=== PATIENT | female | born 1980 | race Caucasian/White ===

== ENCOUNTER → 2018-06-10 | Outpatient (CLI) | payer BC ==
--- NOTE | 2018-06-10 10:38 | US ---
EXAMINATION TYPE: US pelvis complete transvag DATE OF EXAM: 06/10/2018 COMPARISON: NONE CLINICAL HISTORY: N93.8 Other specified abnormal uterine. Abnormal vaginal bleeding, RLQ pain TECHNIQUE: Transvaginal (TV) and Transabdominal (TA) . Transabdominal sonographic images of the pel vis were acquired. Transvaginal sonographic images were medically necessary to better assess the fol lowing anatomy: Uterus Date of LMP: 05/20/2018 EXAM MEASUREMENTS: Uterus: 7.5 x 4.1 x 3.0 cm Endometrial Stripe: 0.9 cm Right Ovary: 4.1 x 2.5 x2.3 cm Left Ovary: 2.2 x 1.6 x 1.3 cm 1. Uterus: Anteverted hypoechoic area posteriorly, ? fibroid =1.3 x 1.0 x 0.8 cm. Multiple nebothi an cysts. Largest = 0.8 cm 2. Endometrium: thickened, ? pushed anteriorly by fibroid 3. Right Ovary: with cyst = 1.1 x 1.0 x 0.8 cm 4. Left Ovary: wnl 5. Bilateral Adnexa: wnl 6. Posterior cul-de-sac: small amount of free fluid noted around uterus. IMPRESSION: Fibroid uterus
== END ==
LOC: RADUSWWP 08:06
PROVIDERS: ATTEND Family Medicine
DX: D25.9 Leiomyoma of uterus, unspecified (principal)
CPT/HCPCS: 76830; 76856

== ENCOUNTER 2018-11-28 22:10 | Emergency (ER) | payer BC ==
[2018-11-28 22:41] VITALS: BP 112/76; PULSE 93; RESP 16; TEMP 98.4
[2018-11-28] MEDS ORDERED: MUPIROCIN 2% OINT 22 GM TUBE TOPICAL STA (23:46)
[2018-11-28] MEDS ORDERED: SULFAMETH-TMP DS STARTER PACK 2 TAB BTL PO STA (23:46)
--- NOTE | 2018-11-28 23:57 | ED ---
Skin/Abscess/FB HPI - General Chief complaint: Skin/Abscess/Foreign Body Stated complaint: L Toe Infection Time Seen by Provider: 11/28/18 23:32 Source: patient, family Mode of arrival: ambulatory Limitations: no limitations - History of Present Illness Initial comments: 38-year-old female patient presents to the emergency department today for evaluation of infection to the left great toe. Patient states that she has had infection surrounding the left great toe nail for the last week. Patient states over the last 24 hours the swelling and redness has increased. Patient states that she did go to urgent care this morning and was started on Keflex and had it drained. She states that since that visit she has developed a red streak extending up her foot in her leg. States she is having some aching pain to the left inguinal region. Patient denies any fever or chills. Denies nausea or vomiting. States she has taken one dose of antibiotic so far. Denies taking anything for pain or discomfort. Patient denies any recent rash, shortness breath, chest pain, abdominal pain, nausea, vomiting, diarrhea, constipation, back pain, numbness, tingling, dizziness, weakness, hematuria, dysuria, urinary urgency, urinary frequency, headache, visual changes, or any other complaints. - Related Data Home Medications Medication Instructions Recorded Confirmed Cephalexin [Keflex] 500 mg PO Q12HR 11/28/18 11/28/18 Cholecalciferol [Vitamin D3 (25 5,000 unit PO DAILY 11/28/18 11/28/18 Mcg = 1000 Iu)] L.acidoph,Paracasei, B.lactis 1 cap PO DAILY 11/28/18 11/28/18 [Probiotic] Magnesium Citrate 125 mg PO HS 11/28/18 11/28/18 Multivitamins, Thera [Multivitamin 1 tab PO DAILY 11/28/18 11/28/18 (formulary)] Previous Rx's Medication Instructions Recorded Cephalexin [Keflex] 500 mg PO TID #30 cap 11/28/18 Sulfamethoxazole/Trimethoprim 1 each PO BID #20 tablet 11/28/18 [Bactrim DS 800-160 mg] Fluconazole [Diflucan] 150 mg PO ONCE #2 tab 11/29/18 Allergies Allergy/AdvReac Type Severity Reaction Status Date / Time No Known Allergies Allergy Verified 11/28/18 23:37 Review of Systems ROS Statement: Those systems with pertinent positive or pertinent negative responses have been documented in the HPI. ROS Other: All systems not noted in ROS Statement are negative. Past Medical History Past Medical History: No Reported History History of Any Multi-Drug Resistant Organisms: None Reported Additional Past Surgical History / Comment(s): apollo Past Psychological History: Anxiety, Depression Smoking Status: Never smoker Past Alcohol Use History: Occasional Past Drug Use History: None Reported General Exam Limitations: no limitations General appearance: alert, in no apparent distress, other (This is a well- developed, well-nourished adult female patient in no acute distress. Vital signs upon presentation are temperature 98.4F, pulse 93, respirations 16, blood pressure 112/76, pulse ox 98% on room air.) Eye exam: Present: normal appearance, PERRL, EOMI. Absent: scleral icterus, conjunctival injection, periorbital swelling ENT exam: Present: normal exam, normal oropharynx, mucous membranes moist Respiratory exam: Present: normal lung sounds bilaterally. Absent: respiratory distress, wheezes, rales, rhonchi, stridor Cardiovascular Exam: Present: regular rate, normal rhythm, normal heart sounds. Absent: systolic murmur, diastolic murmur, rubs, gallop, clicks Extremities exam: Present: full ROM, normal capillary refill, other (There is evidence for paronychia surrounding the left great toenail. There is red streaking line consistent with lymphangitis extending up the foot into mid calf. No drainage noted from the toenail. Skin is otherwise pink, warm, dry. Cap refills less than 3 seconds. Pedal and posttibial pulses are 2+ and equal bilaterally.). Absent: normal inspection, tenderness, pedal edema, joint swelling, calf tenderness Neurological exam: Present: alert, oriented X3, CN II-XII intact Psychiatric exam: Present: normal affect, normal mood Skin exam: Present: warm, dry, intact, normal color. Absent: rash Course Vital Signs 11/28/18 22:37 Temperature 98.4 F Pulse Rate 93 Respiratory 16 Rate Blood Pressure 112/76 O2 Sat by Pulse 98 Oximetry Procedures - Incision & Drainage Consent Obtained: verbal consent Indication: Paronychia Site: other (Left great toe) Size (cm): 1 I&D Cleaning Method: Betadine Scalpel Used: #11 I&D Drainage Obtained: Blood Culture Obtained?: Yes Complications: pain Patient Tolerated Procedure: well Medical Decision Making - Medical Decision Making 38-year-old female patient presents to the emergency department today for evaluation of infection surrounding the left great toenail as well as red streaking up her foot and leg. Physical examination reveals evidence for paronychia on the left great toenail. There is also evidence for lymphangitis of the left leg. She is afebrile normal vital signs. Patient did take one dose of Keflex this evening. Did attempt drainage of the paronychia which only drained blood. Culture was sent. Patient will be given prescription of bactrim to take in addition to keflex pending culture. She is instructed to take Tylenol and Motrin for pain control. Patient has had these infections from antibiotics in the past and is requesting Diflucan. She'll be discharged up with her primary care physician for recheck in 1-2 days. Return parameters were discussed in detail. She verbalizes understanding and agrees with this plan. Disposition Clinical Impression: Paronychia of great toe, left, Lymphangitis Disposition: HOME SELF-CARE Condition: Good Instructions (If sedation given, give patient instructions): Paronychia (ED), Lymphangitis (ED) Additional Instructions: Complete antibiotic prescriptions in full. Increase dosage of Keflex to 3 times daily. Take Tylenol Motrin for pain control. Follow-up with your primary care physician for recheck in 1-2 days. Return to the emergency department immediately for any new, worsening, or concerning symptoms. Prescriptions: Sulfamethoxazole/Trimethoprim [Bactrim DS 800-160 mg] 1 each PO BID #20 tablet Fluconazole [Diflucan] 150 mg PO ONCE #2 tab Cephalexin [Keflex] 500 mg PO TID #30 cap Is patient prescribed a controlled substance at d/c from ED?: No Referrals: Irina Rogers MD [Primary Care Provider] - 1-2 days Time of Disposition: 23:56
--- NOTE | 2018-11-29 00:16 | ED ---
Skin/Abscess/FB HPI - General Chief complaint: Skin/Abscess/Foreign Body Stated complaint: L Toe Infection Time Seen by Provider: 11/28/18 23:32 Source: patient, family Mode of arrival: ambulatory Limitations: no limitations - Related Data Home Medications Medication Instructions Recorded Confirmed Cephalexin [Keflex] 500 mg PO Q12HR 11/28/18 11/28/18 Cholecalciferol [Vitamin D3 (25 5,000 unit PO DAILY 11/28/18 11/28/18 Mcg = 1000 Iu)] L.acidoph,Paracasei, B.lactis 1 cap PO DAILY 11/28/18 11/28/18 [Probiotic] Magnesium Citrate 125 mg PO HS 11/28/18 11/28/18 Multivitamins, Thera [Multivitamin 1 tab PO DAILY 11/28/18 11/28/18 (formulary)] Allergies Allergy/AdvReac Type Severity Reaction Status Date / Time No Known Allergies Allergy Verified 11/28/18 23:37 Review of Systems ROS Statement: Those systems with pertinent positive or pertinent negative responses have been documented in the HPI. ROS Other: All systems not noted in ROS Statement are negative. Past Medical History Past Medical History: No Reported History History of Any Multi-Drug Resistant Organisms: None Reported Additional Past Surgical History / Comment(s): apollo Past Psychological History: Anxiety, Depression Smoking Status: Never smoker Past Alcohol Use History: Occasional Past Drug Use History: None Reported General Exam Limitations: no limitations Course Vital Signs 11/28/18 22:37 Temperature 98.4 F Pulse Rate 93 Respiratory 16 Rate Blood Pressure 112/76 O2 Sat by Pulse 98 Oximetry Disposition Referrals: Irina Rogers MD [Primary Care Provider] - 1-2 days
== END 2018-11-29 00:26 | disposition home or self-care (01) ==
LOC: EC 22:10
DX: L03.042 Acute lymphangitis of left toe (principal); Z79.899 Other long term (current) drug therapy
CPT/HCPCS: 10060; 87070; 87205; 99283

== ENCOUNTER → 2019-04-08 | Outpatient (CLI) | payer BC ==
[2019-04-08 10:26] LABS: Basophils # (A) 0.1 k/uL (0-0.2); Basophils % (A) 1 %; Eosinophils # (A) 0.4 k/uL (0-0.7); Eosinophils % (A) 7 %; HCT 42.2 % (34.0-46.0); HGB 13.9 gm/dL (11.4-16.0); Lymphocytes # (A) 2.5 k/uL (1.0-4.8); Lymphocytes % (A) 42 %; MCH 29.7 pg (25.0-35.0); MCHC 32.9 g/dL (31.0-37.0); MCV 90.2 fL (80.0-100.0); Mean Platelet Volume 7.3; Monocytes # (A) 0.4 k/uL (0-1.0); Monocytes % (A) 6 %; Neutrophils # (A) 2.5 k/uL (1.3-7.7); Neutrophils % (A) 41 %; Platelet Count 309 k/uL (150-450); RBC 4.68 m/uL (3.80-5.40); RDW 12.8 % (11.5-15.5)
[2019-04-08 13:49] LABS: Erythrocyte Sedimentation Rate 9 mm/hr (0-20)
[2019-04-08 17:49] LABS: Ferritin 61.8 ng/mL (10.0-291.0); Thyroid Peroxidase Antibodies <28.0 U/mL (0.0-60.0)
[2019-04-08 17:59] LABS: ALT 14 U/L (8-44); AST 21 U/L (13-35); African American GFR (CKD) 107.6 (60.0-200.0); Albumin/Globulin Ratio 2.42 (1.60-3.17); Alkaline Phosphatase 42 U/L (41-126); BUN/Creat Ratio 18.75 Ratio (12.00-20.00); C Reactive Protein <0.4 mg/dL (0.0-0.8); Calcium 9.6 mg/dL (8.7-10.3); Carbon Dioxide 27.2 mmol/L (21.6-31.8); Chloride 104 mmol/L (96-109); Chol/HDL Ratio 2.47; Cholesterol 200 mg/dL (0-200); Globulin 1.9 g/dL (1.6-3.3); Glucose 84 mg/dL (70-110); Iron 91 ug/dL (50-170); Non-African American GFR(CKD) 92.9 (60.0-200.0); Potassium 4.5 mmol/L (3.5-5.5); Sodium 139 mmol/L (135-145); Total Bilirubin 0.4 mg/dL (0.3-1.2); Total Iron Binding Capacity 288 ug/dL (228-460); Total Protein 6.5 g/dL (6.2-8.2); Triglycerides <50.0 mg/dL (0.0-149.0)
[2019-04-08 18:18] LABS: Hemoglobin A1C 5.2 % (4.0-6.0)
== END | disposition home or self-care (01) ==
LOC: LABWHC1 09:44
PROVIDERS: ATTEND Family Medicine
DX: Z00.00 Encounter for general adult medical examination without abnormal findings (principal); Z13.228 Encounter for screening for other metabolic disorders; Z13.220 Encounter for screening for lipoid disorders; G61.0 Guillain-Barre syndrome; N93.8 Other specified abnormal uterine and vaginal bleeding; E56.9 Vitamin deficiency, unspecified
CPT/HCPCS: 36415; 80053; 80061; 82306; 82607; 82626; 82728; 83036; 83090; 83540; 83550; 84207; 84439; 84443; 84480; 85025; 85652; 86140; 86376

== ENCOUNTER → 2019-05-12 | Outpatient (CLI) | payer BC ==
[2019-05-12 18:32] LABS: T4, Free (Free Thyroxine) 1.1 ng/dL (0.80-1.80)
== END | disposition home or self-care (01) ==
LOC: LABWHC1 11:12
PROVIDERS: ATTEND Obstetrics & Gynecology
DX: E03.9 Hypothyroidism, unspecified (principal)
CPT/HCPCS: 36415; 84439; 84443; 84481

== ENCOUNTER → 2019-10-17 | Outpatient (CLI) | payer BC ==
[2019-10-17 16:34] LABS: T4, Free (Free Thyroxine) 0.9 ng/dL (0.80-1.80)
== END | disposition home or self-care (01) ==
LOC: LABWHC1 10:13
PROVIDERS: ATTEND Obstetrics & Gynecology
DX: E03.9 Hypothyroidism, unspecified (principal)
CPT/HCPCS: 36415; 84439; 84443; 84481; 84482

== ENCOUNTER → 2023-07-28 | Outpatient (CLI) | payer BC ==
--- NOTE | 2023-07-29 09:46 | MM ---
Reason for Exam: Screening (asymptomatic). Patient History: Menarche at age 12. Patient has no children. Perimenopausal. Currently using Progesterone, starting at age 42. Maternal aunt had breast cancer, age 72. Paternal aunt had breast cancer, age 77. Risk Values: Serena 5 year model risk: 0.9%. NCI Lifetime model risk: 10.7%. Tissue Density: The breasts are heterogeneously dense, which may obscure small masses. Findings: Analyzed By CAD. There is no suspicious group of microcalcifications or new suspicious mass in either breast. Asymmetric density in the upper outer margin right breast recommend spot compression view. Overall Assessment: Incomplete: need additional imaging evaluation, BI-RAD 0 Management: Diagnostic Mammogram of the right breast. . Patient should continue monthly self-breast exams. A clinical breast exam by your physician is recommended on an annual basis. This exam should not preclude additional follow-up of suspicious palpable abnormalities. Note on Serena scores and lifetime risk: 1. A Serena score greater than 3% is considered moderate risk. If this is the case, consider specialist referral to assess eligibility for a risk reducing agent. 2. If overall lifetime risk for the development of breast cancer is 20% or higher, the patient may qualify for future screening with alternating mammogram and breast MRI. Electronically signed and approved by: Ian Kennedy M.D. Radiologis
== END | disposition home or self-care (01) ==
LOC: RADMAMWWP 08:57
PROVIDERS: ATTEND Obstetrics & Gynecology
DX: Z12.31 Encounter for screening mammogram for malignant neoplasm of breast (principal); Z80.3 Family history of malignant neoplasm of breast
CPT/HCPCS: 77063; 77067

== ENCOUNTER → 2024-10-13 | Outpatient (CLI) | payer BC ==
[2024-10-13 10:20] LABS: Basophils # (A) 0.15 X 10*3/uL (0.00-0.10); Basophils % (A) 2.0 %; Eosinophils # (A) 0.68 X 10*3/uL (0.04-0.35); Eosinophils % (A) 9.2 %; HCT 40.6 % (37.2-46.3); HGB 13.7 g/dL (12.0-15.0); Immature Grans, Automated 0.10 %; Lymphocytes # (A) 2.85 X 10*3/uL (0.90-5.00); Lymphocytes % (A) 38.4 %; MCH 29.7 pg (27.0-32.0); MCHC 33.7 g/dL (32.0-37.0); MCV 88.1 FL (80.0-97.0); Monocytes # (A) 0.61 X 10*3/uL (0.20-1.00); Monocytes % (A) 8.2 %; NRBC Per 100 WBC 0 X 10*3/uL (0.00-0.01); Neutrophils # (A) 3.12 X 10*3/uL (1.80-7.70); Neutrophils % (A) 42.1 %; Platelet Count 305 X 10*3/uL (140-440); RBC 4.61 X 10*6/uL (4.10-5.20); RDW 13.0 % (11.5-14.5); WBC 7.42 X 10*3/uL (4.50-10.00)
[2024-10-13 10:51] LABS: ALT 27 U/L (8-44); AST 24 U/L (13-35); Albumin 4.9 g/dL (3.8-4.9); Albumin/Globulin Ratio 2.13 Ratio (1.60-3.17); Alkaline Phosphatase 47 U/L (41-126); Anion Gap 11.50 mmol/L (4.00-12.00); BUN/Creat Ratio 20.12 Ratio (12.00-20.00); Blood Urea Nitrogen 16.1 mg/dL (9.0-27.0); Calcium 9.7 mg/dL (8.7-10.3); Carbon Dioxide 26.5 mmol/L (21.6-31.8); Chloride 103 mmol/L (96-109); Cholesterol 218.00 mg/dL (0.00-200.00); Globulin 2.3 g/dL (1.6-3.3); Glucose 88 mg/dL (70-110); HDL Cholesterol 86.80 mg/dL (40.00-60.00); LDL Cholesterol,Calculated 122.0 mg/dL (0.0-131.0); Potassium 4.2 mmol/L (3.5-5.5); Sodium 141 mmol/L (135-145); T4, Free (Free Thyroxine) 0.81 ng/dL (0.80-1.80); Total Protein 7.2 g/dL (6.2-8.2); Triglycerides 46.00 mg/dL (0.00-149.00); VLDL Calculation 9.20 mg/dL (5.00-40.00); Vitamin B12 689.0 pg/mL (200.0-944.0)
[2024-10-13 13:26] LABS: Follicle Stimulating Hormone 20.4 mIU/mL
== END | disposition home or self-care (01) ==
LOC: LABWHC1 08:00
PROVIDERS: ATTEND Obstetrics & Gynecology
DX: Z00.00 Encounter for general adult medical examination without abnormal findings (principal); Z13.220 Encounter for screening for lipoid disorders; E07.9 Disorder of thyroid, unspecified; E55.9 Vitamin D deficiency, unspecified; E03.9 Hypothyroidism, unspecified; D51.9 Vitamin B12 deficiency anemia, unspecified; N95.1 Menopausal and female climacteric states
CPT/HCPCS: 36415; 80053; 80061; 82306; 82397; 82607; 82670; 83001; 84144; 84403; 84439; 84443; 84480; 85025